=== PATIENT | female | born 1940 | race Caucasian/White ===

== ENCOUNTER 2018-01-19 07:54 | Day surgery (SDC) | payer MEDICARE, OTHER ==
[2018-01-19] MEDS ORDERED: LIDOCAINE 1% INJ-PF (10 MG/ML) 30 ML SDV ONE (07:58)
[2018-01-19] MEDS ORDERED: CHONDR SU A NA/HYALUR INTRAOC KIT (SURGICARE) ONE (07:58)
[2018-01-19] MEDS ORDERED: EPINEPHRINE INJ/PF 1 MG/1 ML AMPULE ONE (07:58)
[2018-01-19] MEDS: BESIFLOXACIN HCL 0.6% OPH SUSP 5 ML BOTTLE OD PRN ×4 (08:03→08:55)
[2018-01-19] MEDS: TROPICAMIDE 1% OPH SOLN 3 ML OD PRN ×3 (08:03→08:23)
[2018-01-19] MEDS: CYCLOPENTOLATE 0.2%/PHENYLEPHRINE 1% OPH SOLN 2 ML OD PRN ×3 (08:03→08:23)
[2018-01-19] MEDS: KETOROLAC TROMETHAMINE 0.45% 4 DROP/0.4 ML DROPERETTE OD PRN ×2 (08:04→09:42)
[2018-01-19] MEDS: TETRACAINE HCL 0.5% OPH SOLN 2 ML OD PRN ×3 (08:04→08:28)
[2018-01-19] MEDS ORDERED: MIDAZOLAM 2 MG/2 ML INJ ONE (08:14)
--- NOTE | 2018-01-19 21:44 | [facility] OPERATIVE REPORT E ---
[facility] Operative Report NAME: MARILEE YEPEZ AGE: 77Y DATE OF SURGERY: 01/19/2018 ROOM: PREOPERATIVE DIAGNOSIS: CATARACT, RIGHT EYE. POSTOPERATIVE DIAGNOSIS: CATARACT, RIGHT EYE. OPERATION: Cataract extraction with toric intraocular lens implant of the right eye. SURGEON: JANETH REIS M.D. ANESTHESIA: Topical. PROCEDURE: After obtaining appropriate consent, the patient's right eye was prepped and draped in sterile fashion as well as the surgeon in a sterile manner and cataract surgery was started. First a paracentesis blade was used to make a small side-port incision. Viscoelastic was used to inflate the anterior chamber. Next a 2.4 mm incision was made with the paracentesis blade. A continuous capsulorrhexis incision was made using a cystotome and Utrata forceps. Following this hydrodissection was carried out to make the lens fully loose and mobile and it was rotated 90 degrees. Following this, a xfrvgj-raw-irawizq technique was used to phacoemulsify the lens with a CDE of 7.78. The remaining cortex was removed with irrigation/aspiration. Provisc was instilled into the capsular bag to inflate the bag. A SN6AT5, 22.0 diopter lens, rotated to 87 degrees, was placed. The remaining viscoelastic material was removed with irrigation/aspiration. Following this, a 10-0 nylon suture was used to close the incision and it was found to be watertight. Vigamox was instilled in the eye and a protective shield was placed over the eye. The patient returned to the postoperative recovery in stable condition. DICTATING PHYSICIAN: JANETH REIS M.D. [id number] PHY#: [id number] 2013 ID: [id number] JOB#: [id number] ACCT: [id number] cc:JANETH REIS M.D. >
--- NOTE | 2018-01-19 21:48 | DISCHARGE SUMMARY E ---
Discharge Summary NAME: MARILEE YEPEZ : 1940 AGE: 77Y ADMITTED: 01/19/2018 DISCHARGED: HOSPITAL COURSE: This is a 32-afqu-vds-old female who underwent cataract extraction of the right eye with insertion of a toric IOL. DIAGNOSIS: Cataract, right eye. She underwent surgery because she was having difficulty seeing television. DISCHARGE INSTRUCTIONS: She is to be on a regular diet. No bending at her waist, no heavy lifting. She is to use her Besivance, Ilevro, and Durezol at 3:00 p.m. and 8:00 p.m., and sleep with a rigid shield. I will see her for her 1 day postoperative tomorrow. DICTATING PHYSICIAN: JANETH REIS M.D. [id number] PHY#: [id number] 2013 ID: [id number] JOB#: [id number] ACCT: [id number] cc:JANETH REIS M.D. >
== END 2018-01-19 09:45 | disposition home or self-care (01) ==
LOC: SC 07:54
PROVIDERS: ATTEND Internal Medicine
PROC: 08RJ3JZ Replacement of Right Lens with Synthetic Substitute, Percutaneous Approach (ICD-10-PCS; principal; 2018-01-19 08:30)
DX: H25.13 Age-related nuclear cataract, bilateral (principal)
CPT/HCPCS: 66984; V2787; J2250; J3490 ×2; A9270; J0171; 142

== ENCOUNTER 2018-02-09 08:37 | Day surgery (SDC) | payer MEDICARE, OTHER ==
[~2018-02-09 08:37] MED LIST: KETOROLAC TROMETHAMINE 0.45% 4 DROP/0.4 ML DROPERETTE OS PRN
[2018-02-09] MEDS ORDERED: EPINEPHRINE INJ/PF 1 MG/1 ML AMPULE ONE (08:49)
[2018-02-09] MEDS ORDERED: CHONDR SU A NA/HYALUR INTRAOC KIT (SURGICARE) ONE (08:49)
[2018-02-09] MEDS ORDERED: LIDOCAINE 1% INJ-PF (10 MG/ML) 30 ML SDV ONE (08:49)
[2018-02-09] MEDS: TETRACAINE HCL 0.5% OPH SOLN 2 ML OS PRN ×3 (09:36→10:08)
[2018-02-09] MEDS: TROPICAMIDE 1% OPH SOLN 3 ML OS PRN ×3 (09:36→09:53)
[2018-02-09] MEDS: BESIFLOXACIN HCL 0.6% OPH SUSP 5 ML BOTTLE OS PRN ×3 (09:36→10:32)
[2018-02-09] MEDS: CYCLOPENTOLATE 0.2%/PHENYLEPHRINE 1% OPH SOLN 2 ML OS PRN ×3 (09:36→09:52)
[2018-02-09] MEDS ORDERED: MIDAZOLAM 2 MG/2 ML INJ ONE (09:53)
[2018-02-09] MEDS ORDERED: FENTANYL CITRATE INJ/PF 100 MCG/2 ML AMPUL ONE (09:54)
--- NOTE | 2018-02-09 16:04 | [facility] OPERATIVE REPORT E ---
[facility] Operative Report NAME: MARILEE YEPEZ AGE: 77Y DATE OF SURGERY: 02/09/2018 PREOPERATIVE DIAGNOSIS: CATARACT, LEFT EYE. POSTOPERATIVE DIAGNOSIS: CATARACT, LEFT EYE. OPERATION: Cataract extraction with Toric intraocular lens implant of the left eye. SURGEON: JANETH REIS M.D. ANESTHESIA: Topical. PROCEDURE: After obtaining appropriate consent, the patient's left eye was prepped and draped in sterile fashion as well as the surgeon in a sterile manner and cataract surgery was started. First a paracentesis blade was used to make a small side-port incision. Viscoelastic was used to inflate the anterior chamber. Next a 2.4 mm incision was made with the paracentesis blade. A continuous capsulorrhexis incision was made using a cystotome and Utrata forceps. Following this hydrodissection was carried out to make the lens fully loose and mobile and it was rotated 90 degrees. Following this, a pfurbm-iog-iigcezv technique was used to phacoemulsify the lens with a CDE of 5.94. The remaining cortex was removed with irrigation/aspiration. Provisc was instilled into the capsular bag to inflate the bag. A SN6AT5 lens rotated to 95-degrees, 21.5 diopter lens was placed. The remaining viscoelastic material was removed with irrigation/aspiration. Following this, a 10-0 nylon suture was used to close the incision and it was found to be watertight. Vigamox was instilled in the eye and a protective shield was placed over the eye. The patient returned to the postoperative recovery in stable condition. DICTATING PHYSICIAN: JANETH REIS M.D. [id number] PHY#: [id number] ID: [id number] JOB#: [id number] ACCT: [id number] cc:JANETH REIS M.D. >
--- NOTE | 2018-02-09 16:14 | DISCHARGE SUMMARY E ---
Discharge Summary NAME: MARILEE YEPEZ : 1940 AGE: 77Y ADMITTED: 02/09/2018 DISCHARGED: 02/09/2018 HOSPITAL COURSE: This is a 77-year-old female who underwent cataract extraction of the left eye with insertion of a Toric IOL. Patient underwent surgery because of having trouble seeing road signs when driving. Patient has been on a regular diet. DISCHARGE INSTRUCTIONS: No bending at his waist or any heavy lifting. She should use Besivance, Ilevro, and Durezol at 3 p.m. and 8 p.m. and sleep with a rigid shield. I will see them 1 day postoperative tomorrow. DICTATING PHYSICIAN: JANETH REIS M.D. [id number] PHY#: [id number] ID: [id number] JOB#: [id number] ACCT: [id number] cc:JANETH REIS M.D. >
== END 2018-02-09 11:07 | disposition home or self-care (01) ==
LOC: SC 08:37
PROVIDERS: ATTEND Internal Medicine
PROC: 08RK3JZ Replacement of Left Lens with Synthetic Substitute, Percutaneous Approach (ICD-10-PCS; principal; 2018-02-09 10:30)
DX: H25.12 Age-related nuclear cataract, left eye (principal); Z96.1 Presence of intraocular lens; M19.90 Unspecified osteoarthritis, unspecified site; Z79.1 Long term (current) use of non-steroidal anti-inflammatories (NSAID)
CPT/HCPCS: 66984; V2787; J2250; J3490 ×2; A9270; J0171; J3010; 142